=== PATIENT | female | born 1980 | race Caucasian/White ===

== ENCOUNTER → 2023-04-04 | Outpatient (CLI) | payer OTHER ==
[~2023-04-04] MED LIST: CARAFATE 1GM1 G PO; NEXIUM 40MG40 MG PO; PRIMAQUINE PO; ROBITUSSIN COLD PO; ZOFRAN 4MG T4 MG/TAB PO
== END ==
LOC: MC.RAD 09:52
DX: Z12.31 Encounter for screening mammogram for malignant neoplasm of breast (principal)